=== PATIENT | male | born 1950 | race Caucasian/White ===

== ENCOUNTER 2018-03-12 15:18 | Outpatient (CLI) | payer MEDICARE ==
--- NOTE | 2018-03-13 10:57 | XRAY Report ---
Reason: PAIN IN LEFT KNEE,PAIN IN LEFT HIP Procedure Date: 03/12/2018 Accession Number: [id number] / [id number] Procedure: XR - Knee 3 View LT CPT Code: FULL RESULT: EXAM: LEFT KNEE RADIOGRAPHY EXAM DATE: 03/12/2018 03:44 PM. CLINICAL HISTORY: PAIN IN LEFT KNEE,PAIN IN LEFT HIP. COMPARISON: None. TECHNIQUE: 3 views. FINDINGS: Bones: Normal. No fractures or bone lesions. Joints: No joint space loss. Tiny marginal osteophytes at the patella. No joint effusion. Soft Tissues: Normal. No soft tissue swelling. IMPRESSION: Tiny marginal osteophytes at the patella may reflect early osteoarthrosis. No joint space loss. RADIA
--- NOTE | 2018-03-13 10:57 | XRAY Report ---
Reason: PAIN IN LEFT KNEE,PAIN IN LEFT HIP Procedure Date: 03/12/2018 Accession Number: [id number] / [id number] Procedure: XR - Hip w/Pelvis 2-3V LT CPT Code: FULL RESULT: EXAM: LEFT HIP AND PELVIS RADIOGRAPHY EXAM DATE: 03/12/2018 03:44 PM. HISTORY: PAIN IN LEFT KNEE,PAIN IN LEFT HIP. COMPARISONS: None. TECHNIQUE: 1 view of the pelvis and 1 view of the hip. FINDINGS: Bones: Normal. No fracture or bone lesion. Joints: Mild joint space loss and marginal osteophyte formation at the bilateral hips, with a small subchondral cyst at the left superior acetabulum. Minimal degenerative changes of the bilateral sacroiliac joints. Moderate L5-S1 facet arthropathy. Soft Tissues: Normal. No soft tissue swelling. IMPRESSION: 1. 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 2. Moderate L5-S1 facet arthropathy. RADIA
== END 2018-03-12 15:19 | disposition home or self-care (01) ==
LOC: DI 15:18
PROVIDERS: ATTEND Internal Medicine
DX: M16.0 Bilateral primary osteoarthritis of hip (principal); M47.9 Spondylosis, unspecified; M47.898 Other spondylosis, sacral and sacrococcygeal region; M25.562 Pain in left knee

== ENCOUNTER 2018-10-20 14:14 | Outpatient (CLI) | payer MEDICARE ==
--- NOTE | 2018-10-22 02:48 | XRAY Report ---
Reason: PLEURODYNIA R07.81 Procedure Date: 10/20/2018 Accession Number: [id number] / [id number] Procedure: XRS - Ribs 2 View RT CPT Code: FULL RESULT: EXAM: RIGHT RIB RADIOGRAPHY EXAM DATE: 10/20/2018 01:30 PM. CLINICAL HISTORY: PLEURODYNIA R07. 81. COMPARISON: None. TECHNIQUE: 2 views. FINDINGS: Bones: No fracture seen. No acute osseous abnormality. Lungs: No obvious consolidation or pleural effusion. No pneumothorax identified. Mediastinum: Within exam limitations, cardiomediastinal silhouette is grossly unremarkable. Other: None. IMPRESSION: 1. No rib fracture identified. RADIA
== END 2018-10-20 14:15 | disposition home or self-care (01) ==
LOC: DI.S 14:14
PROVIDERS: ATTEND Nurse Practitioner Family
DX: R07.81 Pleurodynia (principal)

== ENCOUNTER 2019-04-02 13:33 | Outpatient (CLI) | payer MEDICARE ==
[2019-04-02] MEDS ORDERED: IOVERSOL 320 100 ML VIAL IVP ONE ×2 (13:43→14:57)
[2019-04-02] MEDS ORDERED: IOVERSOL 320 50 ML VIAL ONE (13:43)
[2019-04-02 14:07] LABS: BASOPHILS # (AUTO) 0.1 10^3/uL (0.0-0.1); BASOPHILS % (AUTO) 0.8 %; EOSINOPHILS # (AUTO) 0.3 10^3/uL (0.0-0.7); EOSINOPHILS % (AUTO) 3.6 %; LYMPHOCYTES # (AUTO) 1.8 10^3/uL (1.5-3.5); LYMPHOCYTES % (AUTO) 22.5 %; MEAN CORPUSCULAR HEMOGLOBIN 30.4 pg (27.0-31.0); MEAN CORPUSCULAR HGB CONC 34.3 g/dL (32.0-36.0); MEAN CORPUSCULAR VOLUME 88.5 fL (80.0-94.0); MEAN PLATELET VOLUME 9.6 fL (7.4-11.4); MONOCYTES # (AUTO) 0.9 10^3/uL (0.0-1.0); MONOCYTES % (AUTO) 11.8 %; NEUTROPHILS # (AUTO) 4.8 10^3/uL (1.5-6.6); NEUTROPHILS % (AUTO) 60.9 %; PLT - PLATELET COUNT 194 10^3/uL (130-450); RED BLOOD COUNT 4.94 10^6/uL (4.70-6.10); RED CELL DISTRIBUTION WIDTH 12.5 % (12.0-15.0); WHITE BLOOD COUNT 7.8 x10^3/uL (4.8-10.8)
[2019-04-02 14:20] LABS: ALBUMIN 4.1 g/dL (3.2-5.5); ALBUMIN/GLOBULIN RATIO 1.6 (1.0-2.2); BILIRUBIN,TOTAL 1.3 mg/dL (0.2-1.0); CALCIUM 8.9 mg/dL (8.5-10.3); CREATININE 1.1 mg/dL (0.6-1.2); TOTAL PROTEIN 6.7 g/dL (6.7-8.2)
[2019-04-02] MEDS ORDERED: IOVERSOL 320 50 ML VIAL PO ONE (14:57)
--- NOTE | 2019-04-02 15:25 | XRAY Report ---
Reason: BURSITIS OF RT SHLDR,RLQ PAIN Procedure Date: 04/02/2019 Accession Number: [id number] / [id number] Procedure: XR - Shoulder 3 View RT CPT Code: Final Report FULL RESULT: EXAM: RIGHT SHOULDER RADIOGRAPHY EXAM DATE: 04/02/2019 01:46 PM. CLINICAL HISTORY: Bursitis of the right shoulder. COMPARISON: None. TECHNIQUE: 3 views. FINDINGS: Bones: No acute fracture or osseous lesion. Joints: No dislocation or subluxation. Minimal spurring present at the right acromioclavicular joint. Soft tissues: No periarticular calcifications. No focal soft tissue swelling appreciated. Visualized portions of the lungs are clear. IMPRESSION: 1. No acute osseous or articular abnormality. 2. Minimal DJD of the right acromioclavicular joint. RADIA
--- NOTE | 2019-04-02 15:43 | CT Report ---
Reason: RLQ PAIN Procedure Date: 04/02/2019 Accession Number: [id number] / [id number] Procedure: CT - Abdomen/Pelvis W CPT Code: Final Report FULL RESULT: EXAM: CT ABDOMEN AND PELVIS EXAM DATE: 04/02/2019 02:51 PM. CLINICAL HISTORY: Right lower quadrant pain. COMPARISONS: ABD/PEL 09/26/2009 7:08 AM. TECHNIQUE: Routine helical CT imaging was performed through the abdomen and pelvis. IV contrast: OPTI 320 100ML. Enteric contrast: Yes. Reconstructions: Coronal and sagittal. In accordance with CT protocol optimization, one or more of the following dose reduction techniques were utilized for this exam: automated exposure control, adjustment of mA and/or KV based on patient size, or use of iterative reconstructive technique. FINDINGS: Lung Bases: Unremarkable. Liver: A few small scattered hypodense masses are seen in the liver, too small to fully characterize. Gallbladder/Bile Ducts: Unremarkable. Spleen: Normal. Pancreas: Normal. Adrenal Glands: Normal. Kidneys: 6 mm right upper pole renal calculus. Mild to moderate right hydronephrosis being caused by a mid ureteral calculus measuring 6 x 5 x 7 mm. A couple of tiny hypodensities seen right kidney. Mild left hydronephrosis, appears slightly decreased compared to prior. No left-sided urinary tract calculi. Peritoneal Cavity/Bowel: Moderate amount of stool seen diffusely in the colon. Normal appendix. No free fluid or free air. No dilated bowel loops are seen. Pelvic Organs: The bladder appears unremarkable. Prominent prostate. Vasculature: No aneurysms or other significant abnormality. Bones: No acute bone findings. IMPRESSION: 1. Mild to moderate right hydronephrosis being caused by a mid ureteral calculus measuring 6 x 5 x 7 mm. 2. 6 mm right renal calculus, nonobstructing. 3. Mild left hydronephrosis, appears slightly decreased compared to the prior. No left-sided urinary tract calculi. 4. See above. RADIA
== END 2019-04-02 13:34 | disposition home or self-care (01) ==
LOC: DI 13:33
PROVIDERS: ATTEND Nurse Practitioner Family
DX: N13.2 Hydronephrosis with renal and ureteral calculous obstruction (principal); M75.51 Bursitis of right shoulder; M19.011 Primary osteoarthritis, right shoulder
CPT/HCPCS: 36415; 73030; 74177; 80053; 85025; Q9967

== ENCOUNTER 2019-04-05 11:52 | Emergency (ER) | payer MEDICARE ==
[2019-04-05] MEDS ORDERED: HYDROcod/ACETAM 5/325 MG TABLET PO STA (12:43)
[2019-04-05] MEDS ORDERED: oxyCODONE 5 MG TABLET PO STA (12:55)
--- NOTE | 2019-04-05 12:57 | ED Physician Documentation ---
PD HPI ABD PAIN - Stated complaint Stated Complaint: MALE - Chief complaint Chief Complaint: Abd Pain - History obtained from History obtained from: Patient - History of Present Illness Timing - onset: Other (68-year-old gentleman who had a CT showing a 5 x 6 x 7 mid right ureteral stone few days ago. Its been bothering him for a week. He was on tramadol but he found that not to be helpful. He tried an oxycodone which she had left over from something else and that was better and now needs more. He is also not on Flomax. There is a pending referral to urology.) Review of Systems Constitutional: denies: Fever, Chills : denies: Dysuria, Frequency, Hesitancy, Hematuria PD PAST MEDICAL HISTORY - Past Medical History Past Medical History: Yes : Kidney stones - Past Surgical History Past Surgical History: Yes - Present Medications Home Medications: Ambulatory Orders Medication Instructions Recorded Confirmed Oxycodone HCl/Acetaminophen 1 - 2 each PO Q6H PRN #30 tablet 04/05/19 [Percocet 5-325 mg Tablet] Tamsulosin [Flomax] 0.4 mg PO DAILY #14 capsule 04/05/19 - Allergies Allergies/Adverse Reactions: Allergies Allergy/AdvReac Type Severity Reaction Status Date / Time No Known Drug Allergies Allergy Verified 04/05/19 12:08 - Social History Does the pt smoke?: No Smoking Status: Never smoker Does the pt have substance abuse?: No - Immunizations Immunizations are current?: Yes PD ED PE NORMAL - Vitals Vital signs reviewed: Yes - General General: Alert and oriented X 3, No acute distress - Abdomen Abdomen: Normal bowel sounds, Soft, Non tender - Back Back: No CVA TTP - Neuro Neuro: Alert and oriented X 3, Normal speech Results - Vitals Vitals: Vital Signs - 24 hr 04/05/19 12:08 Temperature 36.5 C Heart Rate 61 Respiratory 14 Rate O2 Saturation 99 Oxygen O2 Source Room air PD MEDICAL DECISION MAKING - ED course ED course: This is a gentleman with known renal colic who needs pain control and he was administered oxycodone here as well as Percocet and Flomax to go. He will follow-up with urology. Departure - Departure Disposition: 01 Home, Self Care Clinical Impression: Renal colic Condition: Good Record reviewed to determine appropriate education?: Yes Instructions: ED Stone Renal W Colic Prescriptions: Oxycodone HCl/Acetaminophen [Percocet 5-325 mg Tablet] 1 - 2 each PO Q6H PRN #30 tablet PRN Reason: pain Tamsulosin [Flomax] 0.4 mg PO DAILY #14 capsule Comments: Drink plenty of fluids. Do not get up too quickly while on Flomax it may make you dizzy. Follow-up with urology as is being arranged. Return if worse. Do not drink or drive while taking narcotic pain medication. Note that many narcotic pain relievers also contain Tylenol/acetaminophen. Please ensure that your total dose of acetaminophen from all sources does not exceed 3 g (3000 mg) per day. You may get constipated while on this medication. Take a stool softener such as Colace twice a day while you are on it. Also add an jnwj-ibv-ridhoam laxative such as senna or MiraLAX on any day that you do not have a bowel movement. If you received a narcotic pain medication or sedative while in the emergency department, do not drive for the next 24 hours.
== END 2019-04-05 13:17 | disposition home or self-care (01) ==
LOC: ED 11:52
DX: N20.1 Calculus of ureter (principal)
CPT/HCPCS: 99282; 99283; A9270

== ENCOUNTER 2019-04-26 14:27 | Outpatient (CLI) | payer MEDICARE ==
--- NOTE | 2019-04-27 15:36 | Ultrasound Report ---
Reason: HX RT URETERAL STONE, URETEROLITHIASIS Procedure Date: 04/26/2019 Accession Number: [id number] / [id number] Procedure: US - Retroperitoneal CPT Code: Final Report FULL RESULT: EXAM: RENAL ULTRASOUND EXAM DATE: 04/26/2019 03:16 PM. CLINICAL HISTORY: Right ureteral stone. COMPARISON: ABDOMEN/PELVIS W/ 04/02/2019 2:51 PM. TECHNIQUE: Real-time scanning was performed with static images obtained. FINDINGS: Right Kidney: 11.3 x 5.7 x 5.1 cm. Normal echotexture with no stones, contour-deforming masses, or hydronephrosis. Left Kidney: 11.6 x 6.5 x 6.0 cm. Subcentimeter echogenic focus within the lateral cortex of the left kidney may represent an angiomyolipoma. No shadowing stones. No hydronephrosis. Bladder: Bilateral jets seen. The prevoid bladder volume was 94 cc. The postvoid bladder volume was 0 cc. Other: Prostate volume is 37 cc. IMPRESSION: 1. The kidneys demonstrate no shadowing stones or hydronephrosis. 2. Urinary bladder demonstrates no significant abnormalities. 3. The prostate volume is 37 cc. RADIA
== END 2019-04-26 14:28 | disposition home or self-care (01) ==
LOC: DI 14:27
PROVIDERS: ATTEND Urology
DX: N20.1 Calculus of ureter (principal)
CPT/HCPCS: 76770

== ENCOUNTER 2019-05-07 09:38 | Outpatient (CLI) | payer MEDICARE ==
--- NOTE | 2019-05-07 13:09 | MRI Report ---
Reason: INJURY TO RT SHOULDER Procedure Date: 05/07/2019 Accession Number: [id number] / [id number] Procedure: MRI - Shoulder RT W/O CPT Code: Final Report FULL RESULT: EXAM: RIGHT SHOULDER MRI WITHOUT CONTRAST EXAM DATE: 05/07/2019 10:53 AM. CLINICAL HISTORY: Injury to right shoulder. COMPARISON: SHOULDER 3 VIEW RT 04/02/2019 1:42 PM. TECHNIQUE: Multiplanar, multisequence T1-weighted and fluid-sensitive sequences of the shoulder without contrast. Other: None. FINDINGS: Rotator cuff: Large full-thickness tear of the supraspinatus and infraspinatus measuring approximately 3.8 cm medial to lateral and 4.5 cm anteroposterior. A partial thickness intrasubstance insertional tear of the subscapularis allowing mild medial subluxation of the long head biceps tendon. Associated edema at the musculotendinous junctions of the supraspinatus and infraspinatus. No rotator cuff muscle atrophy. Long head biceps tendon: Medial subluxation into the substance of the distal subscapularis. Mild thickening and increased intrasubstance signal. Biceps anchor intact. Labrum: Intact. No tear identified. Bones and articular surfaces: Superior subluxation of the humeral head. Cartilage thinning over the superior aspect of the humeral head. Possible 4 mm loose body within the biceps tendon sheath. Acromioclavicular joint: Moderate degenerative change. Type I acromion. IMPRESSION: 1. Large full-thickness tear of the supraspinatus and infraspinatus 4.5 x 3.8 cm. 2. Small intrasubstance insertional tear of the subscapularis allowing medial subluxation of the long head biceps tendon. 3. Mild long head biceps tendinosis. 4. Moderate degenerative change at the acromioclavicular joint. RADIA
== END 2019-05-07 09:39 | disposition home or self-care (01) ==
LOC: DI 09:38
PROVIDERS: ATTEND Nurse Practitioner Family
DX: M75.101 Unspecified rotator cuff tear or rupture of right shoulder, not specified as traumatic (principal); M67.921 Unspecified disorder of synovium and tendon, right upper arm; M19.011 Primary osteoarthritis, right shoulder

== ENCOUNTER 2019-05-07 16:12 | Outpatient (CLI) | payer MEDICARE ==
--- NOTE | 2019-05-08 02:00 | XRAY Report ---
Reason: URETEROLITHIASIS Procedure Date: 05/07/2019 Accession Number: [id number] / [id number] Procedure: XR - Abdomen 1 View X-Ray CPT Code: 73572 Final Report FULL RESULT: EXAM: ABDOMEN RADIOGRAPHY EXAM DATE: 05/07/2019 05:10 PM. CLINICAL HISTORY: URETEROLITHIASIS. COMPARISON: ABDOMEN/PELVIS W/ 04/02/2019 2:51 PM. TECHNIQUE: 1 view. FINDINGS: A 3 mm calculus overlying the right kidney likely represents the right upper pole calculus seen on the recent CT abdomen/pelvis. The right pelvic calcification corresponds with the phleboliths seen on the CT. No additional abnormal calcifications are seen in the abdomen or pelvis. The bowel gas pattern is nonobstructive. The lung bases are clear. No acute osseous abnormality is seen. IMPRESSION: 3 mm right upper quadrant calculus corresponds with the known right upper pole renal calculus. No additional abnormal calcifications are seen to suggest renal or ureteral calculi. RADIA
== END 2019-05-07 16:13 | disposition home or self-care (01) ==
LOC: DI 16:12
PROVIDERS: ATTEND Urology
DX: N20.0 Calculus of kidney (principal); M75.101 Unspecified rotator cuff tear or rupture of right shoulder, not specified as traumatic; M67.921 Unspecified disorder of synovium and tendon, right upper arm; M19.011 Primary osteoarthritis, right shoulder
CPT/HCPCS: 74018

== ENCOUNTER 2019-08-26 21:59 | Emergency (ER) | payer MEDICARE ==
[2019-08-26 22:11] VITALS: BP 155/68
--- NOTE | 2019-08-26 22:18 | ED Physician Documentation ---
PD HPI ABD PAIN - Stated complaint Stated Complaint: LRQ ABD PX/NAUSEA - Chief complaint Chief Complaint: Abd Pain - History obtained from History obtained from: Patient - History of Present Illness Timing - onset: How many days ago (2) Timing - duration: Days (2) Timing - details: Abrupt onset Pain level now: 6 Quality: Pain Location: RLQ Radiation: Other (no radiation) Improved by: Other (the episode two days ago resolved with flexeril, vicodin, and flomax. Today's episode did not improve with flexeril, oxycodone, and ondansetron) Worsened by: Moving, Palpation Associated symptoms: Nausea. No: Fever, Vomiting, Diarrhea, Constipation, Dysuria, Hematuria Recently seen: Not recently seen - Additional information Additional information: 2 days ago, patient had right lower quadrant "pulsating" pain which resolved with meds (see above); he felt the pain was similar to renal colic he has had in the past. The pain recurred earlier today but did not improve with flexeril, oxycodone, and nausea was minimally improved with ondansetron. He does not feel that the pain he has today is similar to previous renal colic. Review of Systems Constitutional: denies: Fever, Chills, Sweats Cardiac: reports: Reviewed and negative Respiratory: reports: Reviewed and negative GI: reports: Abdominal Pain, Nausea. denies: Abdominal Swelling, Vomiting, Constipation, Diarrhea : denies: Dysuria, Frequency, Hematuria Skin: denies: Rash Musculoskeletal: denies: Back pain PD PAST MEDICAL HISTORY - Past Medical History Past Medical History: Yes : Kidney stones - Past Surgical History Past Surgical History: Yes - Present Medications Home Medications: Ambulatory Orders Medication Instructions Recorded Confirmed Oxycodone HCl/Acetaminophen 1 - 2 each PO Q6H PRN #30 tablet 04/05/19 [Percocet 5-325 mg Tablet] Tamsulosin [Flomax] 0.4 mg PO DAILY #14 capsule 04/05/19 - Allergies Allergies/Adverse Reactions: Allergies Allergy/AdvReac Type Severity Reaction Status Date / Time No Known Drug Allergies Allergy Verified 08/26/19 22:09 - Social History Does the pt smoke?: No Smoking Status: Never smoker Does the pt drink ETOH?: No Does the pt have substance abuse?: No - Immunizations Immunizations are current?: Yes - POLST Patient has POLST: No PD ED PE NORMAL - Vitals Vital signs reviewed: Yes - General General: Alert and oriented X 3, No acute distress, Well developed/nourished - HEENT HEENT: Moist mucous membranes - Neck Neck: Supple, no meningeal sign - Cardiac Cardiac: RRR, No murmur, No gallop, No rub - Respiratory Respiratory: No respiratory distress, Clear bilaterally - Abdomen Abdomen: Normal bowel sounds, Soft, Non distended, Other (mild RLQ tenderness to palpation without rebound or guarding) - Back Back: No CVA TTP - Derm Derm: Normal color, Warm and dry, No rash - Extremities Extremities: No edema Results - Vitals Vitals: Vital Signs - 24 hr 08/26/19 22:02 Temperature 36.4 C L Heart Rate 47 L Respiratory 18 Rate Blood Pressure 155/68 H O2 Saturation 100 Oxygen O2 Source Room air - Labs Labs: Laboratory Tests 08/26/19 08/26/19 08/26/19 22:17 22:18 22:18 WBC 14.3 H RBC 5.13 Hgb 15.4 Hct 45.3 MCV 88.3 MCH 30.0 MCHC 34.0 RDW 12.5 Plt Count 274 MPV 9.6 Neut # (Auto) 11.8 H Lymph # (Auto) 1.3 L [place] # (Auto) 0.9 Eos # (Auto) 0.1 Baso # (Auto) 0.1 Absolute Nucleated RBC 0.00 Nucleated RBC % 0.0 Sodium 138 Potassium 3.9 Chloride 100 L Carbon Dioxide 27 Anion Gap 11.0 BUN 19 Creatinine 1.1 Estimated GFR (MDRD) 67 L Glucose 127 H Calcium 9.7 Total Bilirubin 1.1 H AST 24 ALT 32 Alkaline Phosphatase 55 Total Protein 7.5 Albumin 4.2 Globulin 3.3 Albumin/Globulin Ratio 1.3 Lipase 36 Urine Color YELLOW Urine Clarity CLEAR Urine pH 5.0 Ur Specific [place] >=1.030 H Urine Protein NEGATIVE Urine Glucose (UA) NEGATIVE Urine Ketones 15 H Urine Occult Blood SMALL H Urine Nitrite NEGATIVE Urine Bilirubin NEGATIVE Urine Urobilinogen 0.2 (NORMAL) Ur Leukocyte Esterase NEGATIVE Urine RBC 0-5 Urine WBC 0-3 Ur Squamous Epith Cells NONE SEEN Urine Bacteria None Seen Ur Microscopic Review INDICATED Urine Culture Comments NOT INDICATED - Rads (name of study) CT A/P Radiology: Prelim report reviewed, See rad report PD MEDICAL DECISION MAKING - ED course Complexity details: reviewed results, re-evaluated patient, considered differential, d/w patient Departure - Departure Disposition: Home, Self Care Clinical Impression: Renal colic Condition: Good Instructions: ED Stone Renal W Colic Discharge Date/Time: 08/27/19 01:24
[2019-08-26 22:25] LABS: BASOPHILS # (AUTO) 0.1 10^3/uL (0.0-0.1); BASOPHILS % (AUTO) 0.5 %; EOSINOPHILS # (AUTO) 0.1 10^3/uL (0.0-0.7); EOSINOPHILS % (AUTO) 0.3 %; HGB - HEMOGLOBIN 15.4 g/dL (14.0-18.0); LYMPHOCYTES # (AUTO) 1.3 10^3/uL (1.5-3.5); LYMPHOCYTES % (AUTO) 9.3 %; MEAN CORPUSCULAR VOLUME 88.3 fL (80.0-94.0); MEAN PLATELET VOLUME 9.6 fL (7.4-11.4); MONOCYTES # (AUTO) 0.9 10^3/uL (0.0-1.0); MONOCYTES % (AUTO) 6.5 %; NEUTROPHILS # (AUTO) 11.8 10^3/uL (1.5-6.6); NEUTROPHILS % (AUTO) 82.8 %; PLT - PLATELET COUNT 274 10^3/uL (130-450); RED BLOOD COUNT 5.13 10^6/uL (4.70-6.10); RED CELL DISTRIBUTION WIDTH 12.5 % (12.0-15.0); WHITE BLOOD COUNT 14.3 x10^3/uL (4.8-10.8)
[2019-08-26 22:25] LABS: BILIRUBIN,URINE NEGATIVE (NEGATIVE); GLUCOSE, URINE (UA) NEGATIVE (NEGATIVE); KETONES,URINE (UA) 15 mg/dL (NEGATIVE); LEUKOCYTE ESTERASE, URINE NEGATIVE (NEGATIVE); NITRITE,URINE NEGATIVE (NEGATIVE); OCCULT BLOOD,URINE SMALL (NEGATIVE); PROTEIN,URINE NEGATIVE (NEGATIVE); UROBILINOGEN,URINE 0.2 (NORMAL) E.U./dL (NORMAL)
[2019-08-26 22:26] LABS: CLARITY,URINE CLEAR (CLEAR)
[2019-08-26 22:36] LABS: BACTERIA,URINE None Seen /HPF (None Seen); RBC,URINE 0-5 /HPF (0-5); SQUAMOUS EPITHELIAL CELL,UR NONE SEEN (<= Few)
[2019-08-26 22:38] LABS: ALBUMIN 4.2 g/dL (3.2-5.5); ALBUMIN/GLOBULIN RATIO 1.3 (1.0-2.2); BILIRUBIN,TOTAL 1.1 mg/dL (0.2-1.0); CALCIUM 9.7 mg/dL (8.5-10.3); CREATININE 1.1 mg/dL (0.6-1.2); TOTAL PROTEIN 7.5 g/dL (6.7-8.2)
[2019-08-26] MEDS ORDERED: IOVERSOL 320 100 ML VIAL IVP ONE (22:54)
[2019-08-26] MEDS ORDERED: HYDROmorphone 1 MG/ML CARPUJECT ONE (23:27)
[2019-08-27] MEDS ORDERED: HYDROmorphone 1 MG/ML CARPUJECT ONE (01:00)
[2019-08-27] MEDS ORDERED: KETOROLAC 30 MG/ML VIAL ONE (01:00)
[2019-08-27] MEDS ORDERED: IOVERSOL 320 100 ML VIAL IVP ONE (01:41)
--- NOTE | 2019-08-27 07:46 | CT Report ---
PROCEDURE: Abdomen/Pelvis W INDICATIONS: RLQ abd. pain CONTRAST: IV CONTRAST: Optiray 320 ml: 100 PO CONTRAST: *NO PO CONTRAST TECHNIQUE: After the administration of oral and intravenous contrast, 5 mm thick sections acquired from the diap hragms to the symphysis. 5 mm thick coronal and sagittal reformats were acquired. For radiation dos e reduction, the following was used: automated exposure control, adjustment of mA and/or kV accordin g to patient size. COMPARISON: CT abdomen pelvis 04/02/2019 FINDINGS: Image quality: Excellent. ABDOMEN: Lung bases: Lung bases are clear. Heart size is normal. Solid organs: Liver and spleen are normal in size. Low-attenuation hepatic foci are stable. Gallbla dder is unremarkable Biliary system is non dilated. Pancreas enhances normally. No adrenal nodules . Kidneys demonstrate normal size and enhancement. There is a stable superior left as well as right superior pole renal calculus. In addition, there is a distal right ureteral calculus measuring 6 mm, Hounsfield units 673. It is approximately 5 mm from the ureterovesicular junction. There is moderate right hydronephrosis and mild to moderate right hydroureter. Right perinephric stranding is present. Peritoneum and bowel: Bowel loops demonstrate normal wall thickness and caliber. No free fluid or a ir. Minimal scattered diverticula are present. Appendix is unremarkable. Moderate stool particularly within the right lower quadrant. Nodes and vessels: No retroperitoneal or mesenteric adenopathy by size criteria. Aorta and inferior vena cava are normal in size. Miscellaneous: No ventral hernias. PELVIS: Genitourinary: Bladder wall thickness is normal. Miscellaneous: Fat-containing inguinal hernias are present. Bones: No suspicious bony lesions. No vertebral body compression fractures. IMPRESSION: 1. 6 mm distal right ureteral calculus with mild to moderate hydronephrosis and hydroureter as above. 2. Nonobstructing bilateral renal calculi. The above findings are concordant with preliminary report. Reviewed by: Marium Bueno MD on 08/27/2019 7:44 AM PDT Approved by: Marium Bueno MD on 08/27/2019 7:44 AM PDT Station ID: [id number]
== END 2019-08-27 01:24 | disposition home or self-care (01) ==
LOC: ED 21:59
DX: N13.2 Hydronephrosis with renal and ureteral calculous obstruction (principal); N13.4 Hydroureter
CPT/HCPCS: 36415; 74177; 80053; 81001; 83690; 85025; 96374; 96375; 99284; J1170; Q9967; 81003; 87086